=== PATIENT | male | born 1995 | race African-American/Black ===

== ENCOUNTER 2016-10-16 21:26 | Emergency (ER) | payer BC ==
[~2016-10-16] VITALS: Ht 188 cm; Wt 123.6 kg
[~2016-10-16 21:26] MED LIST: AMOXICILLIN500 MG PO; LORTAB 10-325 M1 TAB PO
[2016-10-16] MEDS ORDERED: AMOXICILLIN500 MG PO (22:46)
[2016-10-16 23:15] VITALS: BP 138/95
== END 2016-10-16 23:15 | disposition home or self-care (01) | DRG 605 ==
LOC: ED 21:26
PROC: 0HQEXZZ Repair Left Lower Arm Skin, External Approach (ICD-10-PCS; principal; 2016-10-16)
DX: S51.812A Laceration without foreign body of left forearm, initial encounter (principal); W25.XXXA Contact with sharp glass, initial encounter; Y92.009 Unspecified place in unspecified non-institutional (private) residence as the place of occurrence of the external cause

== ENCOUNTER 2016-10-23 12:50 | Emergency (ER) | payer BC ==
[~2016-10-23] VITALS: Ht 188 cm; Wt 110.0 kg
[2016-10-23 13:10] VITALS: BP 130/68
== END 2016-10-23 13:13 | disposition home or self-care (01) | DRG 949 ==
LOC: ED 12:50
DX: S51.812D Laceration without foreign body of left forearm, subsequent encounter (principal); T81.30XA Disruption of wound, unspecified, initial encounter

== ENCOUNTER 2019-02-23 23:01 | Emergency (ER) | payer BC ==
[~2019-02-23] VITALS: Ht 188 cm; Wt 109.0 kg
[2019-02-24 00:34] VITALS: BP 137/65
== END 2019-02-24 00:42 | disposition home or self-care (01) | DRG 605 ==
LOC: ED 23:01
PROC: 0HQGXZZ Repair Left Hand Skin, External Approach (ICD-10-PCS; principal; 2019-02-23)
DX: S61.213A Laceration without foreign body of left middle finger without damage to nail, initial encounter (principal); F17.290 Nicotine dependence, other tobacco product, uncomplicated; W26.8XXA Contact with other sharp object(s), not elsewhere classified, initial encounter; Y93.89 Activity, other specified

== ENCOUNTER 2019-03-07 16:52 | Emergency (ER) | payer BC ==
[~2019-03-07] VITALS: Ht 188 cm; Wt 111.0 kg
[2019-03-07 18:03] VITALS: BP 140/88
== END 2019-03-07 18:03 | disposition home or self-care (01) | DRG 951 ==
LOC: ED 16:52
DX: Z48.02 Encounter for removal of sutures (principal)

== ENCOUNTER 2020-04-03 23:07 | Emergency (ER) | payer BC ==
[~2020-04-03] VITALS: Ht 188 cm; Wt 100.0 kg
[2020-04-04 00:20] VITALS: BP 144/90
== END 2020-04-04 00:20 | disposition home or self-care (01) | DRG 605 ==
LOC: ED 23:07
PROC: 0HQCXZZ Repair Left Upper Arm Skin, External Approach (ICD-10-PCS; principal; 2020-04-03)
DX: S41.112A Laceration without foreign body of left upper arm, initial encounter (principal); S30.811A Abrasion of abdominal wall, initial encounter; F17.200 Nicotine dependence, unspecified, uncomplicated; V28.4XXA Motorcycle driver injured in noncollision transport accident in traffic accident, initial encounter

== ENCOUNTER 2021-12-11 10:23 | Emergency (ER) | payer BC ==
[~2021-12-11] VITALS: Ht 188 cm; Wt 115.0 kg
[2021-12-11 10:41] VITALS: BP 142/94
[2021-12-11 10:45] VITALS: BP 145/97
[2021-12-11 10:48] VITALS: BP 145/97
== END 2021-12-11 10:54 | disposition home or self-care (01) | DRG 204 ==
LOC: ED 10:23
DX: R05.9 Cough, unspecified (principal); F17.210 Nicotine dependence, cigarettes, uncomplicated; Z20.822 Contact with and (suspected) exposure to COVID-19

== ENCOUNTER 2024-03-28 12:19 | Emergency (ER) | payer SELFPAY ==
[~2024-03-28] VITALS: Ht 188 cm; Wt 113.0 kg
[2024-03-28 13:01] VITALS: BP 134/97
[2024-03-28] MEDS ORDERED: KETOROLAC TROMETHAMINE 30 MG/ML SDV IV ONE (13:15)
[2024-03-28] MEDS ORDERED: ONDANSETRON HCl 4 MG/2 ML SDV IV ONE (13:15)
[2024-03-28] MEDS ORDERED: SODIUM CHLORIDE 0.9% 1,000 ML IV ONE (13:15)
[2024-03-28 14:03] LABS: BASO% 0.3 % (0-3); EOS% 0.1 % (0-8); IMMATURE GRANULOCYTES 0.2 % (0.0-5.0); LYMPH% 7.3 % (15-41); MEAN CELL VOLUME 72.4 fL CALC (80.0-100.0); MEAN CORPUSCULAR HGB CONC 30.4 g/dL CAL (32.0-36.0); MONO% 9.4 % (2-13); NEUT# 9.91 thou/uL (1.82-7.42); NEUT% 82.7 % (42-76); RED BLOOD COUNT 6.31 mill/uL (4.70-6.10); RED CELL DISTRI WIDTH 15.6 % (11.5-15.5)
[2024-03-28 14:12] LABS: HEMATOCRIT 45.7 % (39.0-50.0); HEMOGLOBIN 13.9 g/dl (14.0-18.0)
[2024-03-28 14:15] LABS: ALBUMIN 4.9 g/dL (3.2-5.0); BILIRUBIN, TOTAL 0.6 mg/dL (0.2-1.3); CREATININE 0.8 mg/dL (0.7-1.3); POTASSIUM 4.2 mmol/l (3.5-5.1); TOTAL PROTEIN 8.8 g/dL (6.3-8.2)
[2024-03-28] MEDS ORDERED: VIBRAMYCIN100 M2 PO (14:59)
[2024-03-28] MEDS ORDERED: ZOFRAN4 MG/TAB PO (14:59)
[2024-03-28 15:06] VITALS: BP 134/97
== END 2024-03-28 15:17 | disposition home or self-care (01) | DRG 195 ==
LOC: ED 12:19
PROVIDERS: Nurse Practitioner
DX: J18.9 Pneumonia, unspecified organism (principal); K52.9 Noninfective gastroenteritis and colitis, unspecified; F17.290 Nicotine dependence, other tobacco product, uncomplicated; Z20.822 Contact with and (suspected) exposure to COVID-19
CPT/HCPCS: J2405